=== PATIENT | female | born 1965 | race Caucasian/White ===

== ENCOUNTER 2021-07-14 20:34 | Emergency (ER) | payer OTHER ==
[~2021-07-14] VITALS: Ht 162.6 cm; Wt 60.0 kg
[2021-07-14] MEDS ORDERED: SODIUM CHLORIDE 0.9% 1,000 ML IV ONE (21:15)
[2021-07-14 22:11] LABS: BASOPHILS % 0.6 % (0.0-2.0); EOSINOPHILS % 0.7 % (0.0-5.0); HEMATOCRIT. 32.5 % (36.0-48.0); LYMPHOCYTES % 27.8 % (20.0-50.0); MEAN CORPUSCULAR HEMOGLOBIN 29.5 pg (28.0-32.0); MEAN PLATELET VOLUME 7.9 fl (7.4-10.4); MONOCYTES % 7.4 % (2.0-8.0); NEUTROPHILS % 63.5 % (40.0-76.0); PLATELET 257 x1000/uL (130-400); RED BLOOD CELL COUNT 3.73 mill/uL (4.2-5.4); RED CELL DISTRIBUTION WIDTH 13.8 % (11.6-14.6)
[2021-07-14 22:12] LABS: CHLORIDE 111 mEq/L (98-107)
[2021-07-14] MEDS ORDERED: ASPIRIN 81MG TABLET PO ONE (22:45)
[2021-07-14] MEDS ORDERED: POTASSIUM CHLORIDE 20MEQ TABLET SR PO ONE (22:45)
[2021-07-15] MEDS ORDERED: POTASSIUM CHLORIDE 20MEQ TABLET SR PO NR (04:15)
[2021-07-15] MEDS ORDERED: ACETAMINOPHEN 325MG TABLET PO PRN ×2 (04:15)
[2021-07-15] MEDS ORDERED: CLONIDINE 0.1MG TABLET PO PRN (04:15)
[2021-07-15] MEDS ORDERED: DIPHENHYDRAMINE 50MG/ML VIAL IV PRN (04:15)
[2021-07-15] MEDS ORDERED: ONDANSETRON HCL 4MG/2ML INJ IV PRN (04:15)
[2021-07-15] MEDS ORDERED: ZOLPIDEM TARTRATE 5MG TABLET PO PRN (04:15)
[2021-07-15 05:57] VITALS: BP 140/62
[2021-07-15] MEDS ORDERED: SODIUM CHLORIDE 0.9% INJ 3ML FLUSH IVF SCH (06:00)
== END 2021-07-15 06:05 | disposition short-term general hospital (02) ==
LOC: ER 20:34 → CANBEDREQ 07-15 11:11
DX: R55 Syncope and collapse (principal); R53.1 Weakness; Z20.822 Contact with and (suspected) exposure to COVID-19
CPT/HCPCS: 36415; 71045; 80053; 83880; 84484; 85025; 87426; 93005; 96361; 96374; 99285; J7030